=== PATIENT | male | born 1985 | race Caucasian/White ===

== ENCOUNTER 2017-10-21 02:01 | Emergency (ER) | payer OTHER ==
[~2017-10-21] VITALS: Ht 172.7 cm; Wt 97.5 kg
[~2017-10-21 02:01] MED LIST: NAPHCON-A EYE D15 ML OP
[2017-10-21 02:22] VITALS: BP 160/101
--- NOTE | 2017-10-21 02:31 | ED GENERAL ADULT ---
History of Present Illness General Chief Complaint: General Adult Stated Complaint: BAD COUGH PER PT Source: patient Exam Limitations: no limitations Vital Signs & Intake/Output Vital Signs & Intake/Output Vital Signs Date Time Temp Pulse Resp B/P B/P Pulse O2 O2 Flow FiO2 Mean Ox Delivery Rate 10/21 0321 98 Room Air Room Air 10/21 221 99.7 105 20 160/101 98 Room Air Allergies Coded Allergies: No Known Allergies (07/04/16) Reconcile Medications Albuterol Sulfate (Ventolin Hfa) 90 MCG HFA.AER.AD 2 PUF INH Q4-6 PRN PRN wheeze Amoxicillin/Potassium Clav (Augmentin 875-125 Tablet) 875 MG-125 MG TABLET 1 TAB PO BID bronchitis Naphazoline HCl/Pheniramine (Naphcon-A Eye Drops) 15 ML DROPS 1 GTT OP BID CONJUNCTIVITIS Prednisone 50 MG TABLET 1 TAB PO DAILY bronchitis/cough Promethazine HCl/Codeine (Promethazine-Codeine Syrup) 6.25 MG-10 MG/5 ML SYRUP 5-10 ML PO Q4-6 PRN cough sixty cc... [id number] Triage Note: PT REPORTS A COUGH THAT BEGAN 3 DAYS AGO. PT REPORTS SCANT AMOUNT OF CLEAR SPUTUM. PT REPORTS HAVING CHILLS AND FEVER. PT REPORTS TAKING NYQUIL/DAYQUIL WITH NO RELIEF. PT REPORTS NOT BEING ABLE TO SLEEP AND COUGHING SO HARD THAT IT CAUSES PRESSURE IN HIS HEAD. Triage Nurses Notes Reviewed? yes Onset: Gradual Duration: day(s): Timing: recent history Injury Environment: home Severity: mild Modifying Factors: Improves With: rest. Associated Symptoms: cough HPI: 32yo gentleman in prior good health presents with cough, phlegm, subjective fevers, diaphoresis for the past 2-3 days. He notes that his girlfriend previously had similar symptoms. He notes, "the coughing is so bad it really hurts my head ... and I almost threw up from it." he is otherwise well. Past History Travel History Traveled to [place] past 21 day No Medical History Any Pertinent Medical History? none Surgical History Surgical History: non-contributory Psychosocial History What is your primary language Dominican Family History Hx Contributory? No Review of Systems Review of Systems Constitutional: Reports: no symptoms. EENTM: Reports: no symptoms. Respiratory: Reports: no symptoms. Cardiovascular: Reports: no symptoms. GI: Reports: no symptoms. Genitourinary: Reports: no symptoms. Musculoskeletal: Reports: no symptoms. Skin: Reports: no symptoms. Neurological/Psychological: Reports: no symptoms. Hematologic/Endocrine: Reports: no symptoms. Immunologic/Allergic: Reports: no symptoms. All Other Systems: Reviewed and Negative Physical Exam Physical Exam General Appearance: well developed/nourished, mild distress Head: atraumatic, normal appearance Eyes: Bilateral: normal appearance. Ears, Nose, Throat: normal pharynx, normal ENT inspection Neck: normal inspection, supple, full range of motion Respiratory: chest non-tender, no respiratory distress, rhonchi Cardiovascular: regular rate/rhythm Gastrointestinal: normal bowel sounds, soft, non-tender, no organomegaly Back: normal inspection Extremities: normal inspection Neurologic/Psych: no motor/sensory deficits, awake, alert, oriented x 3 Skin: intact, normal color, warm/dry Core Measures ACS in differential dx? No CVA/TIA Diagnosis: No Sepsis Present: No Sepsis Focused Exam Completed? No Progress Differential Diagnoses I considered the following diagnoses in my evaluation of the patient: bronchitis vs asthma vs viral syndrome vs other. Plan of Care: duo neb, steroids, supportive medications. Initial ED EKG: none Departure Departure Disposition: HOME OR SELF CARE Condition: Stable Clinical Impression Primary Impression: Bronchitis Referrals: Roxanna GOLD PHD,Leobardo Urbina (PCP/Family) Departure Forms: Customer Survey General Discharge Information Prescriptions: Current Visit Scripts Prednisone 1 TAB PO DAILY #4 TAB Albuterol Sulfate (Ventolin Hfa) 2 PUF INH Q4-6 PRN PRN wheeze #1 INHAL Amoxicillin/Potassium Clav (Augmentin 875-125 Tablet) 1 TAB PO BID #20 TAB Promethazine HCl/Codeine (Promethazine-Codeine Syrup) 5-10 ML PO Q4-6 PRN cough #60 ML sixty cc... [id number] Comments at discharge, pt is feeling better after nebs and supportive medications. close follow up advised. Critical Care Note Critical Care Note Critical Care Time: non-applicable
[2017-10-21] MEDS ORDERED: VENTOLIN HFA18 GM INH (02:51)
[2017-10-21] MEDS ORDERED: PREDNISONE50 M1 PO (02:51)
[2017-10-21] MEDS ORDERED: PROMETHAZINE-C118 ML PO (02:51)
[2017-10-21] MEDS ORDERED: AUGMENTIN 875-1 EACH PO (02:51)
== END 2017-10-21 03:45 ==
LOC: ERH 02:01
DX: J40 Bronchitis, not specified as acute or chronic (principal)
CPT/HCPCS: 1263; J2405; J3490